=== PATIENT | male | born 1985 | race African-American/Black ===

== ENCOUNTER 2019-03-28 00:14 | Emergency (ER) | payer SELFPAY ==
--- NOTE | 2019-03-28 00:29 | ED ---
Psychiatric Complaint - HPI Summary HPI Summary: Pt is a 34 y/o M presenting to the ED brought in by EMS for a psychiatric complaint. Pt states he had a panic attack tonight for the first time in his life, and felt incredibly short of breath. He also notes he punched his vision board out of frustration. He has been having these symptoms of depression and anxiety for the past 3-4 months, not necessarily brought on by anything, but he has been drinking a lot, stopped taking his HTN meds, and feels like hes in a broken marriage. He has been suicidal, but denies any actual intent or plan. - History Of Current Complaint Chief Complaint: EDPsychosocial Time Seen by Provider: 03/28/19 00:20 Accompanied By: EMS Hx Obtained From: Patient Onset/Duration: Gradual Onset, Lasting Weeks, Still Present Timing: Weeks Severity Initially: Moderate Character: Depressed, Anxious Aggravating Factor(s): Recent Stress Alleviating Factor(s): Nothing Associated Signs And Symptoms: Positive: Hostile - punched vision board Has Suicidal: Reports: Thoughts. Denies: With A Plan - Allergies/Home Medications Allergies/Adverse Reactions: Allergies Allergy/AdvReac Type Severity Reaction Status Date / Time No Known Allergies Allergy Verified 03/28/19 00:22 PMH/Surg Hx/FS Hx/Imm Hx Previously Healthy: Yes Endocrine/Hematology History: Denies: Hx Diabetes Cardiovascular History: Reports: Hx Hypertension Infectious Disease History: No Infectious Disease History: Denies: Traveled Outside the [place] in Last 30 Days - Social History Lives: With Family Alcohol Use: Daily Alcohol Amount: for 3 days, prior to that, rarely Hx Substance Use: No Substance Use Type: Reports: None Hx Tobacco Use: No Smoking Status (MU): Never Smoked Tobacco Review of Systems Positive: Shortness Of Breath Positive: Other - small lacs on his R hand Positive: Anxious, Depressed All Other Systems Reviewed And Are Negative: Yes Physical Exam - Summary Physical Exam Summary: Appearance: Well-appearing, Well-nourished, lying in bed comfortably Skin: Warm, dry, no obvious rash. Superficial cuts over knuckles of his R hand. Nothing that requires closure. No tenderness or swelling to suggest a fracture. Eyes: sclera anicteric, no conjunctival pallor ENT: mucous membranes moist, pharynx appears normal Neck: Supple, nontender Respiratory: Clear to auscultation, no signs of respiratory distress Cardiovascular: Normal S1, S2. No murmurs. Normal distal pulses in tibial and radial bilaterally. Abdomen: Soft, nontender, normal active bowel sounds present Musculoskeletal: Normal, Strength/ROM Intact Neurological: A&Ox3, awake and alert, mentation is normal, speech is fluent and appropriate Psychiatric: affect is normal, does not appear anxious or depressed Triage Information Reviewed: Yes Vital Signs On Initial Exam: Initial Vitals Temp Pulse Resp BP Pulse Ox 202 F 104 18 150/102 97 03/28/19 00:18 03/28/19 00:18 03/28/19 00:18 03/28/19 00:18 03/28/19 00:18 Vital Signs Reviewed: Yes Procedures - Sedation Patient Received Moderate/Deep Sedation with Procedure: No Diagnostics - Vital Signs Vital Signs Temp Pulse Resp BP Pulse Ox 03/28/19 00:18 202 F 104 18 150/102 97 - Laboratory Result Diagrams: 03/28/19 00:38 03/28/19 00:38 Lab Statement: Any lab studies that have been ordered have been reviewed, and results considered in the medical decision making process. Re-Evaluation - Re-Evaluation 1st re-eval Re-Evaluation Time: 01:12 Change: Unchanged Comment: Pt agitated and requesting to leave. D/t alcohol level, pt would at minimum need to find a sober ride. He states his is on her way. Course/Dx - Course Course Of Treatment: Pt is a 34 y/o M presenting to the ED brought in by EMS for a psychiatric complaint. He has been having these symptoms of depression and anxiety for the past 3-4 months, not necessarily brought on by anything, but he has been drinking a lot, stopped taking his HTN meds, and feels like he s in a broken marriage. He has been suicidal, but denies any actual intent or plan. Physical exam is nml aside from some superficial cuts over knuckles of his R hand. Nothing that requires closure. No tenderness or swelling to suggest a fracture. As of 111, pt is agitated and requesting to leave. D/t alcohol level, pt would at minimum need to find a sober ride. He states his is on her way. Pt's did not arrive. He was calmed down with verbal reassurance. Pt will be signed out to Dr. Ferrell at 0700 pending MHE. - Differential Dx/Clinical Impression Provider Diagnosis: Alcohol intoxication, Aggression Discharge ED - Sign-Out/Discharge Documenting (check all that apply): Sign-Out Patient Signing out patient TO: Michael Ferrell - Discharge Plan Condition: Stable Disposition: HOME Patient Education Materials: Alcohol Intoxication (ED) Referrals: Care [facility] [Outside] - 3 Days Additional Instructions: Follow up with your primary care provider in 2-3 days. Return to the emergency department for any new or worsening symptoms. - Billing Disposition and Condition Condition: STABLE Disposition: Home - Attestation Statements Document Initiated by Scribe: Yes Documenting Scribe: Radha Awad Provider For Whom Lucy is Documenting (Include Credential): Angus Whitley MD. Scribe Attestation: Radha Lopez scribed for Angus Whitley MD. on 03/28/19 at 2019. Scribe Documentation Reviewed: Yes Provider Attestation: The documentation as recorded by the Radha torres accurately reflects the service I personally performed and the decisions made by Angus briceno MD. Status of Scribe Document: Viewed
[2019-03-28 00:47] LABS: ABS Basophils 0.1 10^3/ul (0-0.2); ABS Eosinophils 0.1 10^3/ul (0-0.6); ABS Lymphocytes 3.2 10^3/ul (1.0-4.8); ABS Monocytes 0.7 10^3/ul (0-0.8); ABS Neutrophils 3.4 10^3/ul (1.5-7.7); Eosinophil % 1.3 %; Hematocrit 45 % (42-52); Hemoglobin 14.9 g/dL (14.0-18.0); Lymphocyte % 42.5 %; Mean Corpuscular HGB Conc 33 g/dL (31-36); Mean Corpuscular Hemoglobin 29 pg (27-31); Mean Corpuscular Volume 86 fL (80-94); Mean Platelet Volume 8.4 fL (7.4-10.4); Nucleated Red Blood Cells % 0.1; Platelet Count 291 10^3/uL (150-450); Red Blood Count 5.22 10^6 /uL (4.18-5.48); Red Cell Distribution Width 13 % (10-15); White Blood Count 7.5 10^3/uL (3.5-10.8)
[2019-03-28 01:00] LABS: ALT 30 U/L (7-52); AST 30 U/L (13-39); Albumin 4.4 g/dL (3.2-5.2); Albumin/Globulin Ratio 1.8 (1-3); Alkaline Phosphatase 37 U/L (34-104); Anion Gap 12 mmol/L (2-11); BUN/Creatinine Ratio 15.2 (8-20); Blood Urea Nitrogen 16 mg/dL (6-24); CO2 Carbon Dioxide 28 mmol/L (22-32); Calcium 9.1 mg/dL (8.6-10.3); Chloride 102 mmol/L (101-111); EGFR African American 97.8 (>60); EGFR Non-African American 80.9 (>60); Globulin 2.5 g/dL (2-4); Glucose 87 mg/dL (70-100); Sodium 142 mmol/L (135-145); Total Protein 6.9 g/dL (6.4-8.9)
[2019-03-28 01:05] LABS: Acetaminophen < 15 mcg/mL; Alcohol 286 mg/dL (<10); Salicylate < 2.50 mg/dL (<30)
[2019-03-28 01:21] LABS: TSH (Thyroid Stimulating Horm) 0.99 mcIU/mL (0.34-5.60)
--- NOTE | 2019-03-28 07:14 | ED ---
Progress - Progress Note Progress Note: The patient is a sign-out from Dr. Angus Whitley MD, to Dr. Michael Ferrell MD, at change of shift at 0700 on 03/28/19, pending sobriety, mental health evaluation, and disposition. 0750 - patient is now sober and is declining mental health evaluation because he states that he was intoxicated and did not have any suicidal ideation, although he believes he had an anxiety attack; he is not suicidal now, and he does not have a history of psychiatric problems; his is in the emergency department and feels safe taking him home without a mental health evaluation Re-Evaluation - Re-Evaluation 1st re-eval Re-Evaluation Time: 07:50 Change: Improved Comment: Patient is sober. He declines mental health evaluation now as he is not having any suidical thoughts, and he does not have a psychiatric history. His feels safe taking him home. Course/Dx - Course Course Of Treatment: The patient is a sign-out from Dr. Angus Whitley MD, to Dr. Michael Ferrell MD, at change of shift at 0700 on 03/28/19, pending sobriety, mental health evaluation, and disposition. Since the patient is now sober, we discussed the plan for mental health evaluation. He declines the evaluation because he states that he does not have a history of psychiatric problems, and he is not experiencing any suicidal thoughts now. He believes that he had a panic attack last night while intoxicated. His is in the emergency department and feels safe taking him home this morning. The patient and his understand and agree with the plan. I believe that the patient is acting appropriately now and is safe to discharge without a mental health evaluation at this time. - Diagnoses Provider Diagnoses: Alcohol intoxication, Aggression Discharge ED - Sign-Out/Discharge Documenting (check all that apply): Patient Departure - Patient will be discharged home., Receiving Sign-Out Receiving patient FROM: Angus Whitley - Patient is a sign-out from Dr. Angus Whitley MD, at change of shift at 0700 on 03/28/19, pending sobriety, mental health evaluation, and disposition. - Discharge Plan Condition: Stable Disposition: HOME Patient Education Materials: Alcohol Intoxication (ED) Referrals: Care [facility] [Outside] - 3 Days Additional Instructions: Follow up with your primary care provider in 2-3 days. Return to the emergency department for any new or worsening symptoms. - Billing Disposition and Condition Condition: STABLE Disposition: Home - Attestation Statements Document Initiated by Lucy: Yes Documenting Scribe: Izzy Graham Provider For Whom Lucy is Documenting (Include Credential): Dr. Michael Ferrell MD Scribe Attestation: Izzy Lopez scribed for Dr. Michael Ferrell MD on 03/28/19 at 1844. Scribe Documentation Reviewed: Yes Provider Attestation: The documentation as recorded by the Izzy torres accurately reflects the service I personally performed and the decisions made by me, Dr. Michael Ferrell MD Status of Scribe Document: Viewed Procedures - Sedation Patient Received Moderate/Deep Sedation with Procedure: No
[2019-03-28 08:01] VITALS: BP 148/80
== END 2019-03-28 08:00 | disposition home or self-care (01) ==
LOC: ED 00:14
DX: F10.129 Alcohol abuse with intoxication, unspecified (principal); R45.6 Violent behavior; R06.02 Shortness of breath; F41.9 Anxiety disorder, unspecified; F32.9 Major depressive disorder, single episode, unspecified; I10 Essential (primary) hypertension
CPT/HCPCS: 36415; 80053; 80320; 80329; 84443; 85025; 99282; G0480